=== PATIENT | male | born 1965 | race Caucasian/White ===

== ENCOUNTER 2016-08-15 22:18 | Emergency (ER) | payer OTHER ==
[2016-08-16 04:14] LABS: HEMOGLOBIN 12.6 gm/dl (14.0-17.5); RED BLOOD COUNT 4.03 M/UL (4.20-5.50); WHITE BLOOD COUNT 8.4 K/UL (4.5-11.0)
[2016-08-16 04:52] LABS: BUN/CREATININE RATIO 17 (0-10)
[2016-11-27] MEDS ORDERED: BUPRENORPHIN-N1 EACH PO (05:42)
[2016-11-27] MEDS ORDERED: NEURONTIN 400400 MG PO (05:43)
[2016-11-27] MEDS ORDERED: ELAVIL 25 MG TA25 MG PO (05:43)
[2016-11-27] MEDS ORDERED: HYDROCHLOROTHIA25 MG PO (05:44)
[2016-11-27] MEDS ORDERED: TENORMIN 50 MG50 MG PO (05:44)
[2016-11-27] MEDS ORDERED: NORVASC 5 MG TAB5 MG PO (05:44)
[2016-11-27] MEDS ORDERED: LIPITOR TAB 2020 MG PO (05:45)
[2016-11-27] MEDS ORDERED: ASPIRIN EC81 MG PO (05:45)
[2016-11-27] MEDS ORDERED: WELLBUTRIN SR150 MG PO (05:50)
[2016-11-27] MEDS ORDERED: ESCITALOPRAM OX10 MG PO (05:51)
[2016-11-27] MEDS ORDERED: DEPO-TESTO200 MG/1 M IM (05:52)
[2016-11-27] MEDS ORDERED: HYDROXYZINE PAM25 MG PO (05:52)
== END 2016-08-16 06:00 | disposition home or self-care (01) ==
LOC: ER1 22:18
PROVIDERS: Specialist/Technologist Athletic Trainer
DX: L03.116 Cellulitis of left lower limb (principal); L25.9 Unspecified contact dermatitis, unspecified cause; I10 Essential (primary) hypertension; Z79.899 Other long term (current) drug therapy
CPT/HCPCS: 36415; 71010; 80053; 83605; 83880; 85025; 93005; 96360; 99284

== ENCOUNTER 2020-09-01 18:22 | Emergency (ER) | payer OTHER ==
[~2020-09-01 18:22] MED LIST: ASPIRIN EC81 MG PO; BUPRENORPHIN-N1 EACH PO; DEPO-TESTO200 MG/1 M IM; ELAVIL 25 MG TA25 MG PO; ESCITALOPRAM OX10 MG PO; HYDROCHLOROTHIA25 MG PO; HYDROXYZINE PAM25 MG PO; LIPITOR TAB 2020 MG PO; NEURONTIN 400400 MG PO; NORVASC 5 MG TAB5 MG PO; TENORMIN 50 MG50 MG PO; WELLBUTRIN SR150 MG PO
== END 2020-09-02 00:04 | disposition home or self-care (01) ==
LOC: ER1 18:22
DX: S09.90XA Unspecified injury of head, initial encounter (principal); S70.01XA Contusion of right hip, initial encounter; H61.21 Impacted cerumen, right ear; F17.200 Nicotine dependence, unspecified, uncomplicated; I10 Essential (primary) hypertension; E78.00 Pure hypercholesterolemia, unspecified; Z79.899 Other long term (current) drug therapy; Y04.2XXA Assault by strike against or bumped into by another person, initial encounter
CPT/HCPCS: 69210; 70450; 73502; 99284

== ENCOUNTER → 2021-02-04 | Outpatient (CLI) | payer OTHER | LOC: RAD 09:57 | DX: M54.2 Cervicalgia (principal); M54.50 Low back pain, unspecified; M54.6 Pain in thoracic spine; M47.812 Spondylosis without myelopathy or radiculopathy, cervical region | CPT/HCPCS: 72050; 72072; 72110 ==

== ENCOUNTER → 2021-02-12 | Outpatient (CLI) | payer OTHER | LOC: KOH-I 14:09 | DX: I10 Essential (primary) hypertension (principal); R94.4 Abnormal results of kidney function studies | CPT/HCPCS: 76775 ==

== ENCOUNTER 2021-09-12 21:32 | Emergency (ER) | payer OTHER ==
[~2021-09-12 21:32] MED LIST changes: +AMLODIPINE BESYL5 MG PO; +CARVEDILOL25 MG PO; +CATAPRES 0.1MG0.1 MG PO; +COZAAR 50MG TAB50 MG PO
[2021-09-12 23:33] LABS: HEMOGLOBIN 13.3 gm/dl (14.0-17.5); RED BLOOD COUNT 4.55 M/UL (4.20-5.50); WHITE BLOOD COUNT 19.3 K/UL (4.5-11.0)
[2021-09-13] MEDS ORDERED: LASIX40 MG PO (00:58)
[2021-09-13] MEDS ORDERED: CEPHALEXIN500 M1 PO (00:58)
== END 2021-09-13 01:06 | disposition home or self-care (01) ==
LOC: ER1 21:32
PROVIDERS: Physician Assistant
DX: L03.116 Cellulitis of left lower limb (principal); L03.115 Cellulitis of right lower limb; R60.0 Localized edema; I11.0 Hypertensive heart disease with heart failure; I50.9 Heart failure, unspecified; E78.5 Hyperlipidemia, unspecified; J44.9 Chronic obstructive pulmonary disease, unspecified; F17.210 Nicotine dependence, cigarettes, uncomplicated
CPT/HCPCS: 71045; 80053; 83880; 85025; 99283

== ENCOUNTER 2021-09-16 17:06 | Emergency (ER) | payer OTHER ==
[~2021-09-16 17:06] MED LIST changes: +CEPHALEXIN500 M1 PO; +LASIX40 MG PO
[2021-09-16 17:52] LABS: HEMOGLOBIN 12.5 gm/dl (14.0-17.5); RED BLOOD COUNT 4.23 M/UL (4.20-5.50); WHITE BLOOD COUNT 9.6 K/UL (4.5-11.0)
[2021-09-16 19:00] LABS: BUN/CREATININE RATIO 10 (0-10)
== END 2021-09-16 21:25 | disposition home or self-care (01) ==
LOC: ER1 17:06 → CDU 20:30 → ER1 21:25
PROVIDERS: Preventive Medicine Occupational Medicine
DX: F10.239 Alcohol dependence with withdrawal, unspecified (principal); J44.1 Chronic obstructive pulmonary disease with (acute) exacerbation; I11.0 Hypertensive heart disease with heart failure; I50.9 Heart failure, unspecified; Z86.19 Personal history of other infectious and parasitic diseases; Z20.822 Contact with and (suspected) exposure to COVID-19; Z51.81 Encounter for therapeutic drug level monitoring
CPT/HCPCS: 36600; 70450; 71045; 80053; 80307; 81001; 82009; 82140; 82550; 82553; 82803; 83605; 83690; 83880; 84439; 84443; 84484; 84550; 85025; 85610; 85652; 85730; 86140; 87040; 93005; 94660; 96374; 96375; 99283; G0480; J0696; J2060; U0002